=== PATIENT | male | born 1930 | race Caucasian/White ===

== ENCOUNTER 2017-09-08 09:43 | Outpatient (CLI) | payer MEDICARE ==
[2017-09-08] MEDS ORDERED: ISOVUE-370 76%-LOCM 1 ML ONE (15:00)
== END 2017-09-08 09:44 | disposition home or self-care (01) ==
LOC: BICCT 09:43
PROVIDERS: ATTEND Urology
DX: C79.82 Secondary malignant neoplasm of genital organs (principal); N30.40 Irradiation cystitis without hematuria; N50.89 Other specified disorders of the male genital organs; C79.51 Secondary malignant neoplasm of bone; C78.6 Secondary malignant neoplasm of retroperitoneum and peritoneum; N13.30 Unspecified hydronephrosis; N28.89 Other specified disorders of kidney and ureter; M43.16 Spondylolisthesis, lumbar region; N43.3 Hydrocele, unspecified; S32.10XA Unspecified fracture of sacrum, initial encounter for closed fracture; N50.3 Cyst of epididymis; R19.09 Other intra-abdominal and pelvic swelling, mass and lump
CPT/HCPCS: 74178; 76870; 82565; 93976

== ENCOUNTER 2017-12-07 09:05 | Outpatient (CLI) | payer MEDICARE ==
[2017-12-07] MEDS ORDERED: ISOVUE-370 76%-LOCM 1 ML ONE (12:56)
== END 2017-12-07 09:06 | disposition home or self-care (01) ==
LOC: BICCT 09:05
PROVIDERS: ATTEND Internal Medicine Hematology & Oncology
DX: C61 Malignant neoplasm of prostate (principal); C79.51 Secondary malignant neoplasm of bone; R19.09 Other intra-abdominal and pelvic swelling, mass and lump; N43.3 Hydrocele, unspecified; R59.9 Enlarged lymph nodes, unspecified; N13.30 Unspecified hydronephrosis; M84.454A Pathological fracture, pelvis, initial encounter for fracture; M48.061 Spinal stenosis, lumbar region without neurogenic claudication; M16.12 Unilateral primary osteoarthritis, left hip; Z96.641 Presence of right artificial hip joint; Z90.79 Acquired absence of other genital organ(s)
CPT/HCPCS: 74177; 82565

== ENCOUNTER 2018-03-01 07:45 | Outpatient (CLI) | payer MEDICARE, SELFPAY ==
--- NOTE | 2018-03-01 11:36 | CT ---
CT ABDOMEN AND PELVIS WITH ORAL AND IV CONTRAST: Date: 03/01/18 HISTORY: Malignant neoplasm of the prostate. COMPARISON: 12/07/17. FINDINGS: Mild chronic changes are again seen in the lung base. The liver, spleen, pancreas, and adrenal glands are normal. No calcified gallstones are seen. The rig ht kidney is unremarkable. Cortical cyst in the left kidney is again seen. The small bowel loops are not abnormally dilated. Left paraaortic lymphadenopathy is again seen with interval worsening. The largest lymph node measure s 2.3 x 1.9 cm. There is a new 7.0 mm lymph node in the left external iliac chain. The soft tissue solid mass in the pelvis has enlarged, measuring 9.7 cm in largest AP dimension (prev iously 8.8 cm). Changes of prostatectomy and iliac chain lymph node dissection are again seen. The probably enhancing solid mass in the right inguinal region superior to the large right hydrocele is again seen and essentially stable, measuring about 8.0 x 5.0 x 4.5 cm. There are vascular calcifications without evidence of aneurysmal dilatation of the abdominal aorta. P ostop changes of right hip arthroplasty and degenerative changes in the left hip joint are again seen . Nonunion of the right sacral ala fracture is again seen. Sclerotic changes in the pelvic osseous st ructures, including the right pelvic body, bilateral sacral ala, right greater than left, and the lef t iliac bone, probably related to nonacute fracture/radiation necrosis are stable. 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 IMPRESSION: Interval worsening since 12/07/17 with increase in size of the pelvic mass and left paraaortic lympha denopathy. POS: PAIGE
[2018-03-01] MEDS ORDERED: ISOVUE-370 76%-LOCM 1 ML ONE (11:58)
== END 2018-03-01 07:46 | disposition home or self-care (01) ==
LOC: BICCT 07:45
PROVIDERS: ATTEND Internal Medicine Hematology & Oncology
DX: C61 Malignant neoplasm of prostate (principal); R59.0 Localized enlarged lymph nodes; R19.00 Intra-abdominal and pelvic swelling, mass and lump, unspecified site
CPT/HCPCS: 74177

== ENCOUNTER 2018-06-15 10:24 | Outpatient (CLI) | payer MEDICARE ==
[~2018-06-15 10:24] MED LIST: Iopamidol 370 76% 100 ML VIAL ONE
--- NOTE | 2018-06-15 13:05 | CT ---
CT ABDOMEN AND PELVIS WITH IV CONTRAST: 06/15/2018 HISTORY: Prostate cancer. History of prostatectomy. Metastatic disease. COMPARISON: 03/01/2018 and 09/08/2017 FINDINGS: There are linear areas of scarring and atelectasis present at each lung base. No pulmonary nodule or mass is seen, and there is no pleural effusion identified. There is herniation of a small amount of fat at the posteromedial right hemidiaphragm. The liver, spleen, pancreas, bilateral adrenal glands, and right kidney demonstrate a normal CT appea farhan. A left renal cyst is again identified. Vascular calcifications are again present in the abdominal aorta and involving the iliac arteries. The prostate gland is not visualized, and there are multiple surgical clips again present within the pelvis. The urinary bladder is completely decompressed with irregularity of the mucosa. This is not able to be further evaluated on this exam. There is no evidence of hydronephrosis. The previously noted lobulated pelvic mass is again identified, with greatest axial dimension of 7.4 cm transverse x 7.3 cm AP with dimensions on prior study in 2018 of 8.2 cm transverse x 9.7 cm AP. I nflammatory stranding within the pelvis, in a presacral location, is overall similar to the prior exa m. There has been interval decrease in size of the left periaortic lymphadenopathy. The conglomeration of lymph nodes seen in a left paraaortic location, below the level of the left renal vein, previously measured 2.6 cm x 1.6 cm and now measures 1.6 cm x 1 cm. An enlarged lymph node seen just inferior to this location previously measured 2.3 cm x 1.9 cm and now measures 1.2 cm x 1.1 cm. No new areas of lymphadenopathy are present in an aortocaval location. Previously noted enlarged lymph node adjac ent to the right common iliac artery on prior exam measured 3.9 cm x 1.9 cm and now measures 3.7 cm x 1.6 cm. Previously noted enhancing and slightly heterogeneous mass in the right inguinal canal is smaller in size and axial dimensions, measuring 4.3 cm x 3.4 cm, and previously measured 4.8 cm x 4.6 cm. The m ass was noted to extend into the scrotum on the prior exam, but the most inferior extent is not image d on this exam. Duodenal diverticulum is present. Again noted are multiple sclerotic metastatic lesions involving the visualized lower thoracic vertebr al bodies, as well as the lumbar vertebral bodies, with metastatic lesions overall stable in size and number involving the vertebral bodies. The previously noted fracture of the right sacral ala, with adjacent increased density is again prese nt, probably related to a pathological fracture involving an osseous metastatic lesion. The areas of sclerosis on either side of the sacroiliac joint on the left are also again seen, stable when compar ed to the prior exam, as well as the study on 09/08/2017. There is a sclerotic lesion seen involving the posteromedial aspect of the left acetabulum, stable from prior exams as well. 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 Avascular necrosis involving the superolatera l margin of the left hip cannot be entirely excluded, although this may be attributable to prominent subchondral cystic changes. A right total hip prosthesis is again present. There has been interval development of vertical height loss of the L2 vertebral body, when compared t o a recent study on 03/01/2018, consistent with a compression fracture of the L2 vertebral body, with at least 30% loss of height, anteriorly. The remainder of the vertebral body heights of the lumbar spine appear to be within normal limits. Again noted is anterolisthesis of L4 on L5. IMPRESSION: 1. Interval development of a compression fracture involving the L2 vertebral bodywith at least 30% h eight loss anteriorly. 2. 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 3. Stable pathological fracture, right sacrum. 4. Improvement in left paraaortic lymphadenopathy, as well as improvement in the enlarged lymph node adjacent to the right common iliac artery. 5. Mild improvement in the size of the lobulated pelvic mass. 6. The urinary bladder is completely decompressed and not well evaluated, although there is irregula rity of the mucosa. 7. Interval improvement in the size of the right inguinal canal mass, incompletely imaged in the mos t inferior extent. 8. Stable inflammatory stranding within the posterior and lower pelvis. 9. Findings likely attributable to severe left hip osteoarthritis, although avascular necrosis invol ving the superolateral aspect of the femoral head cannot be entirely excluded. 10. Grade 1 anterolisthesis of L4 on L5 with prominent degenerative changes at this level with what a ppears to be severe narrowing of the central spinal canal. POS: PAIGE
== END 2018-06-15 10:25 | disposition home or self-care (01) ==
LOC: BICCT 10:24
PROVIDERS: ATTEND Internal Medicine Hematology & Oncology
DX: C61 Malignant neoplasm of prostate (principal); C79.51 Secondary malignant neoplasm of bone; R59.0 Localized enlarged lymph nodes; R19.09 Other intra-abdominal and pelvic swelling, mass and lump; M43.16 Spondylolisthesis, lumbar region; M47.816 Spondylosis without myelopathy or radiculopathy, lumbar region; M48.061 Spinal stenosis, lumbar region without neurogenic claudication; M48.58XA Collapsed vertebra, not elsewhere classified, sacral and sacrococcygeal region, initial encounter for fracture
CPT/HCPCS: 74177; Q9967

== ENCOUNTER 2018-09-15 10:24 | Outpatient (CLI) | payer MEDICARE ==
--- NOTE | 2018-09-15 11:10 | CT ---
CT Abdomen Pelvis WO Con: 09/15/2018 12:00 AM History: COMPARISON: None. Procedure: Multiple contiguous axial images were obtained and a CT of the abdomen and pelvis without IV contrast . Oral contrast was administered. Coronal reformats were performed. FINDINGS: This examination is limited for the evaluation of solid organs and vascular structures due to the lac k of intravenous contrast. Lower Chest: within normal limits. Abdomen: Liver: within normal limits. Bile Ducts: Normal caliber. Gallbladder: No calcified gallstones. Normal caliber wall. Pancreas: within normal limits. Spleen: within normal limits. Adrenals: within normal limits. Kidneys: Moderate to severe bilateral hydronephrosis. 2.9 cm hypodensity in the left kidney likely re presenting a cyst. Pelvis: Reproductive Organs: There is a large mass in the pelvis measuring 12.4 x 12.2 x 10.6 cm in size. Thi s extends down to the region of the prostate. Ureters: Moderate to severe bilateral hydronephrosis and hydroureter. Bladder: Not visualized secondary to the pelvic mass. Bowel: Normal caliber. Mesenteric Lymph Nodes: No enlarged mesenteric lymph nodes. Peritoneum: No ascites or free air, no fluid collection. Vessels: Atherosclerotic changes . Retroperitoneum: Enlarged retroperitoneal lymph nodes measuring up to 2.5 cm in size. Abdominal Wall: There is a high density round mass in the right inguinal canal measuring 5.6 cm in si ze. Bones: Diffuse sclerotic lesions in the bones consistent with osseous metastatic disease. There appea r to be remote sacral fractures. The patient has a right hip prosthesis. Degenerative changes are seen in the left hip. IMPRESSION: 1. Enlarging pelvic mass causes compression on the distal ureters with moderate to severe bilateral h ydronephrosis 2. Worsening retroperitoneal adenopathy 3. Left renal cyst 4. Stable osseous metastatic disease.
== END 2018-09-15 10:25 | disposition home or self-care (01) ==
LOC: BICCT 10:24
PROVIDERS: ATTEND Internal Medicine Hematology & Oncology
DX: C61 Malignant neoplasm of prostate (principal); N13.30 Unspecified hydronephrosis; N28.1 Cyst of kidney, acquired; R19.00 Intra-abdominal and pelvic swelling, mass and lump, unspecified site; R59.0 Localized enlarged lymph nodes
CPT/HCPCS: 74176

== ENCOUNTER 2018-10-23 00:49 | Inpatient (IN) | payer MEDICARE ==
[2018-10-23 01:29] LABS: #Eosinphils 0.1 thou/uL (0.0-0.7); #Lymphocytes 1.5 thou/uL (1.20-3.40); #Monocytes 0.7 thou/uL (0.11-0.59); #Neutrophils 7.3 thou/uL (1.40-6.50); %Basophils 0.1 % (0.0-1.0); %Eosinophils 1.2 % (0.0-10.0); %Lymphocytes 15.6 % (21.0-51.0); %Monocytes 6.9 % (0.0-10.0); %Neutrophils 76.3 % (42.0-75.0); Hemoglobin 8.3 g/dL (14.0-18.0); Mean Corpuscular HGB CONC 33.6 g/dL (32.0-36.0); Mean Corpuscular Hemoglobin 30.5 pg (27.0-31.0); Mean Corpuscular Volume 90.5 fL (78.0-98.0); Mean Platelet Volume 8.3 fL (7.4-10.4); Platelet Count 263 thou/uL (130-400); RBC Distribution Width 13.4 % (11.5-14.5); Red Blood Cell (RBC) Count 2.72 mill/uL (4.70-6.10); White Blood Cell (WBC) Count 9.5 thou/uL (4.8-10.8)
[2018-10-23] MEDS ORDERED: Morphine 4 MG/ML VIAL ONE (01:29)
[2018-10-23] MEDS ORDERED: Ondansetron PF 4 MG/2 ML Vial ONE (01:29)
[2018-10-23 01:52] LABS: ALT (SGPT) 12 U/L (8-55); AST (SGOT) 17 U/L (5-34); Albumin 4.1 g/dL (3.4-4.8); Alkaline Phosphatase 95 U/L (40-150); Anion Gap 18 mmol/L (10-20); BUN (Urea Nitrogen) 80 mg/dL (8.4-25.7); Bilirubin, Total 0.5 mg/dL (0.2-1.2); Calc. Creatinine Clearance 0 mL/min (70-130); Calcium 9.6 mg/dL (7.8-10.44); Carbon Dioxide 23 mmol/L (23-31); Chloride 102 mmol/L (98-107); Estimated GFR-MDRD 14; Globulin 3.7 g/dL (2.4-3.5); Glucose 112 mg/dL (83-110); Lipase 107 U/L (8-78); Potassium 3.9 mmol/L (3.5-5.1); Protein, Total 7.8 g/dL (5.8-8.1); Sodium 139 mmol/L (136-145)
[2018-10-23] MEDS ORDERED: Ondansetron ODT 4 MG TAB SL PRN (05:02)
[2018-10-23] MEDS ORDERED: Ondansetron PF 4 MG/2 ML Vial IVP PRN (05:02)
[2018-10-23] MEDS ORDERED: Morphine 4 MG/ML VIAL SLOW IVP PRN (05:03)
[2018-10-23] MEDS: Sodium Chloride 0.9% 1,000 ML IV SCH ×2 (06:07→15:48)
[2018-10-23 06:12] VITALS: BMI 19.8
--- NOTE | 2018-10-23 08:28 | CT ---
PRELIMINARY REPORT/[facility]/AFTER HOURS PROCEDURE EXAM: CT Abdomen and Pelvis Without Contrast EXAM DATE/TIME: 10/23/2018 1:58 AM CLINICAL HISTORY: 88 years old, male; Abdominal pain; Acute; Patient HX: Has prostate CA with mets. C/O pelvic pain started 8pm and pain has increased. Also states when has bm states blood coming out of penis. Also having intermittent rectal pain. TECHNIQUE: Imaging protocol: Axial computed tomography images of the abdomen and pelvis without contrast. COMPARISON: No relevant prior studies available. FINDINGS: Lungs: Mild bilateral lower lobe dependent air space opacity-atelectasis. Mediastinum: Rounded 3 cm hiatal hernia. Liver: Normal. No mass. Gallbladder and bile ducts: Normal. No calcified stones. No ductal dilation. Pancreas: Normal. No ductal dilation. Spleen: Normal. No splenomegaly. Adrenals: Normal. No mass. Kidneys and ureters: Moderate bilateral hydronephrosis - hydroureter up to pelvis. Ovoid 3 cm simple appearing left renal cyst. Stomach and bowel: Normal. No obstruction. No mucosal thickening. Mild - moderate amount retained stool material throughout nondilated colon. Appendix: Not seen. Intraperitoneal space: Large 13 x 13.5 x 8 cm area hyperdense soft tissue in pelvis. No free air. Vasculature: Chronic atherosclerotic calcification of the vasculature. Lymph nodes: Normal. No enlarged lymph nodes. Bladder: Unremarkable as visualized. Reproductive: Numerous surgical clips in rectovesical space, absent prostate. Large right hydrocele and fluid in right inguinal canal. Bones/joints: Right total hip arthroplasty creates artifact limiting images of the pelvis. Multifocal areas hyperdensity/sclerosis throughout pelvis and spine. Chronic degenerative changes of the lumbar spine and left hip. Soft tissues: Unremarkable. IMPRESSION: 1. Right total hip arthroplasty creates artifact limiting images of the pelvis. 2. Large pelvic area hyperdensity most suspicious for mass, likely related to patient history of pros farah cancer; less likely consideration is hematoma. Please correlate with patients clinical exam. 3. Moderate bilateral hydronephrosis - hydroureter up to pelvis-likely related to obstruction by pelv ic mass. 4. Evidence multifocal osseous metastatic disease. 5. Large right hydrocele and fluid in right inguinal canal. 6. Mild - moderate amount retained stool material throughout nondilated colon. 7. Rounded 3 cm hiatal hernia. Thank you for allowing us to participate in the care of your patient. Dictated and Authenticated by: Po Alas MD 10/23/2018 5:28 AM Central Time ([place] & True) FINAL REPORT CT ABDOMEN AND PELVIS WITHOUT CONTRAST: PROVIDED CLINICAL HISTORY: Abdominal pain. COMPARISON: 09/15/2018 FINDINGS/IMPRESSION: Agree with the preliminary interpretation given by VRDAVID. Significant interval change with respect to the prior examination is not apparent. Transcribed Date/Time: 10/23/2018 8:32 AM
--- NOTE | 2018-10-23 14:23 | PRG ---
DATE OF SERVICE: 10/23/2018 This is an update to the H and P. After speaking with Dr. Quintanilla who also primarily manages this patient along with Dr. Aparicio, I became aware that his current facility [facility] where he resides as an assisted living center will not accept him back with nephrostomy tubes. I was not completely aware of this. As such, I have canceled the patient's nephrostomy tube, and I have spoken with the patient about this. He is fine leaving the nephrostomy tubes out as he does not want to go to a retirement at this time and would rather stay in his current assisted living situation. Dr. Quintanilla states that he has exhausted most of his treatment options, but she will come by and speak with the patient while he is here. I will put the consult in so that she may be notified. Ultimately, I will defer final treatment plans to Dr. Aparicio and Dr. Quintanilla and will be available this weekend for any further issues. Job ID: [id number]
--- NOTE | 2018-10-23 17:07 | HP ---
CHIEF COMPLAINT: Nausea and vomiting. HISTORY OF PRESENT ILLNESS: This is an 88-year-old male, patient of Dr. Ace Watt, who came to the emergency room due to worsening nausea and vomiting and overall feeling bad. The patient in the emergency room was found to have an expanding pelvic mass, which is causing compression of bilateral ureters and having result of bilateral hydronephrosis. Also experiencing acute renal failure with a creatinine of up to 3.99. The patient states he had a prostatectomy for prostate cancer 20 some years ago and has known about this pelvic mass. He has been seeing Dr. Aparicio and Dr. Quintanilla, but has not had this problem happened. His most common complaint that he states is that for several months he has known that when he has a bowel movement he will have some blood coming through the penis as a result of the motion of the bowels. He does not typically see hematuria with the void. He has not had any fevers. He has not had any changes in mentation. PAST MEDICAL HISTORY: Positive for; 1. Hypertension. 2. History of prostate cancer. PAST SURGICAL HISTORY: 1. Modified radical prostatectomy some 20 years ago. 2. He had an appendectomy. 3. Tonsillectomy. 4. He had a nasal surgery of some kind, said he had some sort of obstruction, he is not sure, but he said it was not a major or big surgery. 5. Right hip replacement. ALLERGIES: TO ERYTHROMYCIN AND SULFA. CURRENT MEDICATIONS: 1. Losartan 100 mg daily. 2. Hydrochlorothiazide 25 mg daily. 3. He has many p.r.n. medicines including Imodium and vitamins. FAMILY HISTORY: Father from a stroke. Mother at an old age, he was not sure of any chronic disease with her. 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 No smoking or drinking. REVIEW OF SYSTEMS: He denies any headache or visual changes. No trouble chewing or swallowing. No fevers or chills. Denies any cough or shortness of breath or hemoptysis or hematemesis. Denies any abdominal pain. Does have nausea with some vomiting. Has not seen a change in his bowel habits. Has not had any hematochezia or melena. He denies any paresis or paresthesias. No troubles with memory. No depression or anxiety. No auditory or visual hallucinations. PHYSICAL EXAMINATION: VITAL SIGNS: Temperature 97.5, pulse 63, saturating 98% to 100% on room air, BP is 180s/70s. GENERAL: He appears an elderly, stated age, but relatively fit. HEENT: Normocephalic and atraumatic cranium. Pupils are equal, round, and reactive to light and accommodation. Extraocular movements are intact. Mucous membranes are moist. NECK: Supple. No JVD. No bruits. No thyromegaly. No lymphadenopathy. LUNGS: Clear to auscultation bilaterally. No rales, rhonchi, or wheezes. HEART: S1 and S2 with no rubs, murmurs, or gallops. ABDOMEN: Soft. Minimal tenderness in the lower half of the abdomen. No rebound. No guarding. Bowel sounds are hypoactive. EXTREMITIES: Good palpable pulses in all 4 extremities. NEUROLOGIC: He is alert and oriented x4. Cranial nerves 2 through 12 are equal and symmetrical. No deficits in any of the sensory nerves grossly. Able to move all extremities and no motor deficits noted. No dysarthria. LABORATORY DATA: His white count is 9.5, hemoglobin 8.3, hematocrit 24.6, and his platelets are 263. Chemistry shows sodium 139, potassium 3.9, chloride 102, bicarb 23, BUN is 80, creatinine is 3.9, GFR is 14, and glucose 112. AST 17, ALT is 12, and lipase mildly elevated at 107. IMAGING STUDIES: CT scan of the abdomen showed no abnormalities of the pancreas and no ductal dilatation, showed a right hip arthroplasty. CT also showed that he has a large pelvic hyperdensity mass, also possible consideration is a hematoma, but moderate bilateral hydronephrosis and hydroureters up to the renal pelvis. There is evidence of multifocal osseous metastatic disease. [id number] retained stool material throughout a nondilated colon. ASSESSMENT: 1. Acute renal failure with bilateral hydronephrosis and pelvic mass. 2. The patient also has acute anemia. PLAN: Consulting his urologist, Dr. Aparicio, her partner Dr. Beasley is on this weekend. He has already been made aware of the situation. Also consulting Nephrology. Job ID: [id number]
--- NOTE | 2018-10-23 18:19 | CON ---
DATE OF CONSULTATION: 10/23/2018 CONSULTING: Jamel Sigala MD REASON FOR CONSULTATION: Bilateral hydronephrosis with metastatic prostate cancer. HISTORY OF PRESENT ILLNESS: Mr. Fowler is an 88-year-old white male, who is currently a patient of Dr. Aparicio and Dr. Quintanilla, regarding advanced metastatic prostate cancer. He has a history of a radical prostatectomy done by Dr. Radford in the past. He subsequently had recurrence and underwent radiation treatments. Unfortunately, he ended up progressing with a large mass developing within the pelvis with bilateral hydronephrosis and pelvic discomfort. He also developed some radiation cystitis. He has undergone multiple rounds of hyperbaric oxygen in the past and his bleeding has now resolved. The patient presented to the emergency room with significant and severe suprapubic and right inguinal pain. This was 10/10 at the initial presentation with sharp in nature radiating directly towards his back. Upon arrival to the ER, he underwent a CT scan, which demonstrated a large pelvic hyperdensity suspicious for mass and most likely related to the patient's prostate cancer with moderate bilateral hydronephrosis up to the level of the pelvis, where the mass was. There was evidence for osseous metastatic disease and a large right hydrocele with fluid in the right inguinal canal, which apparently is newer. Since being admitted to the hospital, the patient states his pain has significantly declined and he is feeling much better. His creatinine is significantly more elevated than it was previously, it is currently 3.99, and it was 2.2 back on September 02. The patient does report that he does not void, but just chronically dribbles and is constantly incontinent. He does have some nuisance from his dribbling and it is bothersome to him, but he has learned to live with it. Dr. Aparicio had previously recommended nephrostomy tubes at the original discovery of the hydronephrosis with renal insufficiency. However, the patient declined stating he did not want nephrostomy tubes. He also refused a Bear catheter or cystoscopy. He has already undergone chemotherapy, which apparently has been stopped due to significant side effects. The patient had been on Xtandi and Lupron provided by Dr. Quintanilla, but apparently the patient reports that he is no longer taking either of these medications. He is currently not taking any treatments at all. He denies any significant hematuria, although he does have some bloody urine whenever he strains to have a bowel movement, which does happen frequently as the patient reports chronic constipation. He denies any difficulty breathing or chest pain, but does feel somewhat fatigued and has chronic pain. He is currently living independently and does not want to be in a facility or live in a care home. ALLERGIES: 1. DUST MITES. 2. ZITHROMAX. 3. KEFLEX. 4. CLINDAMYCIN. 5. BACTRIM. 6. ERYTHROMYCIN. CURRENT MEDICATIONS: 1. Vitamin C. 2. Hydrochlorothiazide. 3. Losartan. 4. Tylenol. 5. Docusate. 6. Loperamide. 7. Milk of magnesia. 8. Diphenhydramine. 9. Guaifenesin. 10. Zofran. 11. Albuterol. 12. Ibuprofen. PAST MEDICAL HISTORY: 1. Prostate cancer, advanced to metastatic disease. 2. Hypercholesterolemia. 3. Hypertension. 4. COPD. 5. Sleep apnea. 6. Colonic polyps. 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 9. Incontinence. PAST SURGICAL HISTORY: 1. Robotic prostatectomy in 2000. 2. Cataract removal. 3. Right arm fracture repair. 4. Surgery for squamous cell carcinoma of the hand. 5. External beam radiation therapy in [place]. FAMILY HISTORY: Noncontributory. Both parents are . SOCIAL HISTORY: The patient is a nonsmoker. He currently lives at [facility] in assisted living, but not a care home. 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 He denies alcohol abuse or illicit drug use as well. REVIEW OF SYSTEMS: A 12-point review of systems was unremarkable other than what was commented on the HPI. The remainder of the review of systems was reviewed and otherwise negative. PHYSICAL EXAMINATION: VITAL SIGNS: Temperature 97.5, pulse 63, respirations 18, blood pressure 188/76, saturation 98% on room air. GENERAL: No apparent distress, communicating, and alert, appears stated age, well nourished, well developed. HEENT: Normocephalic and atraumatic. Pupils are symmetric and round. Sclerae nonicteric. Trachea midline. Moist mucous membranes. CARDIOVASCULAR: Regular rate and rhythm. Normal S1 and S2. Symmetric pulses. CHEST: No increased work of breathing. Symmetric expansion. LUNGS: Clear anteriorly. ABDOMEN: Soft, nontender, and nondistended. Positive bowel sounds. No organomegaly. No hernias. Well-healed prior incisions without hernia. GENITOURINARY: Penis is extremely retracted secondary to a large tense right hydrocele, which is mildly tender to palpation. The hydrocele does extend up into the right inguinal region. There does not appear to be any type of hydrocele on the left. The pelvic mass is not entirely palpable, but there is a pressure some pain on deep palpation in the suprapubic area. RECTAL: Deferred at this time. EXTREMITIES: No clubbing, cyanosis, or edema. MUSCULOSKELETAL: No joint deformities or joint erythema noted. Full range of motion, although the patient does exhibit some weakness in his lower extremities, which is relatively mild, although he cannot stand. There is [id number]-[id number] tenderness to palpation on the back. NEUROLOGIC: Cranial nerves 2 through 12 appear grossly intact. No focal motor deficits identified other than the aforementioned mild lower extremity weakness. SKIN: Warm and dry. No rashes or lesions. Poor turgor. LYMPH: There are no obvious inguinal, axillary, cervical lymph nodes palpable. PSYCHIATRIC: Alert and oriented x3. Appropriate mood and affect. LABORATORY EVALUATION: The full set of labs are in the [facility] system, which I have reviewed. Of note, the patient's white count is 9.5 with a hemoglobin of 8.3, and platelet count of 263. Creatinine is currently 3.99, which is significantly elevated from prior. Alkaline phosphatase is 95. CT from October 23 demonstrates right total hip arthroplasty. Large pelvic area hypodensity most suspicious for a mass measuring 13 x 13.5 x 8 cm. Moderate bilateral hydronephrosis down to the level of the pelvis likely related to the obstruction by the pelvic mass, multifocal osseous metastatic disease. A large right hydrocele with fluid up into the right inguinal canal, [id number] retained stool and around a 3 cm hiatal hernia. ASSESSMENT AND PLAN: An 88-year-old white male with progressive renal insufficiency secondary to bilateral hydronephrosis from a large pelvic mass, which likely represents recurrent prostate cancer. I had a long discussion with the patient regarding his disease prognosis, his current treatment options, and his renal insufficiency. With regard to his prostate cancer, the patient has stopped all treatment. It is likely the cancer will continue to progress until it is fatal. He is not yet ready for hospice and states that he would still like to go longer. I would recommend he re-initiated androgen deprivation, although he has likely castrate resistant, cessation of castration does usually result in faster progression of disease. I would recommend that we can restart bicalutamide at the current time, but Lupron is not available in the hospital. He may discuss going back on Lupron therapy with Dr. Quintanilla, although the long-term prognosis remains poor. Regarding his hydronephrosis, the patient is exhibiting continues renal decline. I talked to him about maintaining his independence and freedom without tubes, although this would likely result in complete renal failure in the near future, which would necessitate dialysis. The patient states he absolutely does not want to be on dialysis. If he does not want this and is not ready for hospice care at this time, I told him the nephrostomy tubes were the best option. After a long discussion regarding this, he understands that he would not lose his independence, but have some decreased in freedom with the tubes coming out of his back. Ureteral stents would not be recommended given the patient's history of radiation cystitis and difficulty in passing urethral instrumentation given that the Bear catheter was not able to be passed previously, as such nephrostomy tubes were the best recommended option and after discussion, the patient has agreed to go forward with nephrostomy tube placement. I will go ahead and order this for the patient were on this admission and we will go ahead and start his bicalutamide now. I will get a PSA to monitor his disease progression at this state. His right inguinal plane seems to be improved. If the patient wanted a palliative hydrocelectomy or decompression with drain placement of his hydrocele that could be discussed in the future, although I will leave this to his primary urologist, Dr. Aparicio. For now, summary of recommendation; 1. Bilateral nephrostomy tube placements nonurgent. 2. Reinitiate bicalutamide with recommendations to restart Lupron as an outpatient. 3. Long-term cancer management options remain limited. Discussion of whether or not chemotherapy would be reasonable to re-initiate, I will leave to Dr. Quintanilla, which the patient can discuss on an outpatient basis. 4. PSA checked today. 5. Continue pain control and we will monitor for pain progression. Job ID: [id number]
--- NOTE | 2018-10-24 00:24 | CON ---
DATE OF CONSULTATION: 10/23/2018 HISTORY OF PRESENT ILLNESS: Mr. Fowler is an 88-year-old male with relapsed locally advanced castrate-resistant prostate cancer who has had a known pelvic mass over the course of the last year and a half, which has gotten progressively worse, off treatment in the last several months. Notably, he responded to chemotherapy over the winter with Taxotere, but this did make him quite ill with diarrhea and he opted to stop this. He has remained on Lupron, but has had progression in the pelvic mass. This has been discussed with him as an outpatient by myself as well as the urologist and the only option at one point months ago was percutaneous nephrostomy. The patient opted to not move forward with percutaneous nephrostomy because of the fact that this would cause him to move out of the [facility] which is his current home. On the day prior to admission, he had increasing pain in the suprapubic area. He had some nausea as well. He denies fevers, chills, or night sweats. His appetite has been slightly decreased in the last few days. His pain is now well controlled on the regimen that he has been hospitalized on, and he is feeling better. PAST MEDICAL HISTORY: 1. Relapsed locally advanced prostate cancer. 2. Hypertension. CURRENT MEDICATIONS: 1. Casodex 50 mg p.o. daily. 2. Morphine 4 mg IV x1, it appears this may have been discontinued. ALLERGIES: AZITHROMYCIN, KEFLEX, CLINDAMYCIN, SULFAMETHOXAZOLE, TRIMETHOPRIM. SOCIAL HISTORY: He lives in the [facility] with his sister and brother-in- law who are quite supportive, this is his main family and source of support. He denies tobacco or alcohol use. FAMILY HISTORY: Negative for malignancies. REVIEW OF SYSTEMS: He does complain of some intermittent constipation. Otherwise, a 10-point review of systems is negative. PHYSICAL EXAMINATION: VITAL SIGNS: Temp 97.5, pulse 63, O2 saturation 98% on room air, blood pressure 188/76. GENERAL: He is quite pleasant, sitting up in a chair, and denies pain. HEENT: Extraocular muscles are intact. Sclerae are anicteric. NECK: Supple without lymphadenopathy. CARDIOVASCULAR: Regular rhythm. LUNGS: Clear to auscultation bilaterally. ABDOMEN: Hypoactive bowel sounds. Slight distention, but no current pain. EXTREMITIES: No edema. No clubbing, and no bruising. LABORATORY DATA: White blood cell count 9.5, hemoglobin 8.3, platelets 263. Sodium 139, potassium 3.9, chloride 102, CO2 of 23, BUN 80, creatinine 3.9, which is up from his baseline which is just below 2. Albumin 4.1. Liver function tests are normal. PSA 156. Abdominal and pelvic CT done in the emergency room shows a large pelvic mass, which seems to be progressive and now measures 13 cm with moderate bilateral hydronephrosis. He does have multifocal osseous metastatic disease as well as a moderate amount of retained stool throughout the colon. ASSESSMENT: Mr. Fowler is an 88-year-old male with, 1. 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 2. 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 3. Bilateral hydronephrosis secondary to pelvic mass. 4. Suprapubic pain secondary to the pelvic mass. PLAN: 1. I again discussed the diagnosis and prognosis with Mr. Fowler. He does want to stay in the [facility] and does not want percutaneous nephrostomy tubes unless this can be managed. 2. I would recommend a palliative care consult. I have discussed hospice with Mr. Fowler in the past and he has not been ready to accept this. He also did not do well with chemotherapy and does not have other good options for treatment for his prostate cancer. We will follow with you and I would recommend no further treatment until his urologist is back after the weekend. 3. I would recommend continue narcotics for pain control. 4. I would recommend further control of the blood pressure with antihypertensive medications. Job ID: [id number] [facility]
--- NOTE | 2018-10-24 01:54 | CON ---
DATE OF CONSULTATION: 10/23/2018 REASON FOR CONSULTATION: Acute on chronic kidney disease. IMPRESSION: Acute on chronic kidney disease. This is likely hemodynamically mediated in the context of nausea and vomiting compounded by obstructive uropathy in the context of bilateral hydronephrosis likely from the prostatic carcinoma and multiple anemia likely anemia of chronic kidney disease. PLAN: 1. The patient does need relieve of the obstruction. Unfortunately, this patient is getting bilateral nephrostomy . The patient not been able to return to [facility]. The patient does not want to lose his ability to return to [facility]. We will defer to Urology and Interventional Radiology as to the alternative plan obstruction in this patient. 2. Gentle rehydration. 3. Renally dose all medications and avoid potentially nephrotoxic agents. 4. Hold losartan and hydrochlorothiazide for now. HISTORY OF PRESENT ILLNESS: History is that of 88-year-old gentleman with metastatic prostatic carcinoma, who presented here with worsening nausea, vomiting, generally feeling terrible, and was noted to have expanding pelvic mass which has caused compression of bilateral ureters resulting in bilateral hydronephrosis. The patient noted with elevated creatinine above his baseline creatinine, thus the need for renal consultation. PAST MEDICAL HISTORY: Significant for prostatic carcinoma, hypertension, status post modified radical prostatectomy, right hip replacement. ALLERGIES: ERYTHROMYCIN AND SULFA. FAMILY HISTORY: Not significantly related to reason for consultation. 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 Rare alcohol with tobacco. REVIEW OF SYSTEMS: As documented in the body of history. All the other systems were reviewed and found not to be significantly related to presenting illness. PHYSICAL EXAMINATION: GENERAL: The patient was found not to be in any obvious distress, noted with the following vital signs. VITAL SIGNS: Afebrile, temperature 98, pulse 66, respiratory rate of 18, O2 saturation 97%, blood pressure of 160/71. HEENT: Unremarkable. Moist oral mucosa. NECK: Supple. No conjunctival injection or icterus. CARDIOVASCULAR SYSTEM: First and second heart sounds were heard. RESPIRATORY SYSTEM: Clear to auscultation. DIGESTIVE SYSTEM: Revealed a benign abdomen. Positive bowel sounds. EXTREMITIES: No peripheral edema. SKIN: No new gross rash. LYMPHATICS: No peripheral lymphadenopathy. SUMMARY: An 88-year-old gentleman with advanced metastatic prostatic carcinoma, who presented here with acute on chronic kidney disease in the context of worsening obstructive uropathy. Thank you for this consultation. We will follow with you. Job ID: [id number]
[2018-10-24 05:26] LABS: #Eosinphils 0.2 thou/uL (0.0-0.7); #Lymphocytes 1.5 thou/uL (1.20-3.40); #Monocytes 0.4 thou/uL (0.11-0.59); #Neutrophils 2.8 thou/uL (1.40-6.50); %Basophils 0.4 % (0.0-1.0); %Eosinophils 3.2 % (0.0-10.0); %Lymphocytes 29.8 % (21.0-51.0); %Neutrophils 57.7 % (42.0-75.0); Hemoglobin 7.1 g/dL (14.0-18.0); Mean Corpuscular HGB CONC 33.5 g/dL (32.0-36.0); Mean Corpuscular Hemoglobin 30.6 pg (27.0-31.0); Mean Corpuscular Volume 91.2 fL (78.0-98.0); Mean Platelet Volume 8.1 fL (7.4-10.4); Platelet Count 198 thou/uL (130-400); RBC Distribution Width 13.2 % (11.5-14.5); Red Blood Cell (RBC) Count 2.31 mill/uL (4.70-6.10); White Blood Cell (WBC) Count 4.9 thou/uL (4.8-10.8)
[2018-10-24 05:43] LABS: Anion Gap 15 mmol/L (10-20); BUN (Urea Nitrogen) 83 mg/dL (8.4-25.7); Calc. Creatinine Clearance 11 mL/min (70-130); Calcium 9.1 mg/dL (7.8-10.44); Carbon Dioxide 22 mmol/L (23-31); Chloride 107 mmol/L (98-107); Estimated GFR-MDRD 12; Glucose 83 mg/dL (83-110); Potassium 4.1 mmol/L (3.5-5.1); Sodium 140 mmol/L (136-145)
[2018-10-24 06:35] LABS: Bilirubin Negative (Negative); Blood, Urine Moderate (Negative); Clarity CLOUDY (Clear); Glucose, Urine (Dipstick) Negative (Negative); Leukocyte Negative (Negative); Nitrite Negative (Negative); Protein, Urine (Dipstick) 30 mg/dL (Neg-Trace); Specific Gravity, Urine 1.008 (1.002-1.036); Urobilinogen 0.2 mg/dL (0.2-1.0)
[2018-10-24 06:38] LABS: Bacteria/HPF None Seen HPF (None Seen); Hyaline Casts/LPF 0-3 HYALINE CAST LPF (0-3 Hyaline); Pathc Cast-AUWi Flag 0.54 (0-2.49); Squamous Epithelial 0-3 HPF (0-3); WBC/HPF 0-3 HPF (0-3)
[2018-10-24] MEDS: Bicalutamide 50 MG TAB PO SCH (08:18)
[2018-10-24] MEDS ORDERED: Prevnar 13-Val Conj/PF 0.5 ML SYRINGE IM ONE (09:00)
[2018-10-24] MEDS ORDERED: Acetaminophen 500 MG TAB PO PRN ×2 (12:30→14:42)
--- NOTE | 2018-10-24 13:59 | PRG ---
DATE OF SERVICE: 10/24/2018 PRIMARY CARE PHYSICIAN: Dr. Ace Ruiz. SUBJECTIVE: The patient today has no new complaints. Consultants came by yesterday. His Nephrology came by and said he might benefit from dialysis, but at this point, not sure what the right thing to do. Dr. Quintanilla from Oncology also came by and stated that there is nothing else to do from a chemotherapy standpoint for him and that the only thing that would give him any prolongation of life would be nephrostomy tubes and Dr. Beasley was in the process of taking him down to the operating room to do nephrostomy tubes and the patient stated that he did not want to leave his current residence, which is [facility] and they told him very explicitly that they could not handle him, he could not reside there if he had urostomy tubes. So, the patient is still trying to decide which way he wants to go. He understands that if he does not have urostomy tubes, that his renal function will continue to deteriorate rapidly and he will have a renal failure and in very short order. If he does need nephrostomy tubes, he will not have to be able to stay at [facility] and he will have to find other residence, that has the ability to handle and take care of nephrostomy tubes and the complication rates of those, and then the knowledge that the prostate cancer will continue to spread and that will be his cause of associated with that. OBJECTIVE: VITAL SIGNS: Today, the patient's vital signs are stable. He is afebrile. He is going to get 1 unit of blood. His hemoglobin today came back at 7.1 with a hematocrit of 21.1. His BUN is up to 83 and his creatinine is up to 4.5. GENERAL: He is alert and oriented, sitting up, conversive, and cooperative. HEENT: Essentially unremarkable. Nonicteric sclerae. No jaundice. NECK: Supple. No JVD. HEART: S1-S2 with no rubs, murmurs, or gallops. LUNGS: Clear bilaterally. ABDOMEN: Soft. EXTREMITIES: Good palpable pulses in all 4 extremities. No cyanosis, clubbing, or edema is noted. ASSESSMENT: Pelvic mass from prostate cancer. The mass is compressing both ureters causing bilateral hydronephrosis and hydroureter. Also has resultant acute renal failure. Also having acute anemia secondary to renal failure. The patient is receiving 1 unit of blood today. The patient will be making a choice on whether he wants to go back to [facility] on hospice type care or whether he wants to have nephrostomy tubes placed and to have a [facility] [employer] help him find a new residence. Dr. Ruiz will be back tomorrow and Dr. Julien Beasley will be back tomorrow and they will help him hopefully to find these decisions. Job ID: [id number]
[2018-10-24] MEDS ORDERED: Ondansetron ODT 4 MG TAB SL PRN (14:43)
[2018-10-24] MEDS ORDERED: Ondansetron PF 4 MG/2 ML Vial SLOW IVP PRN (14:43)
[2018-10-24] MEDS ORDERED: Ondansetron ORAL SOLN. 4 MG/5 ML UDCUP PO PRN (14:44)
[2018-10-24] MEDS ORDERED: Sodium Chloride 0.9% 1,000 ML IV SCH (14:45)
[2018-10-24] MEDS ORDERED: Losartan 25 MG TAB PO SCH (15:45)
[2018-10-24] MEDS ORDERED: Hydrochlorothiazide 25 MG TAB PO SCH (15:45)
--- NOTE | 2018-10-24 23:06 | PRG ---
DATE OF SERVICE: 10/24/2018 SUBJECTIVE: The patient is seen and examined. No new complaints except for appetite. OBJECTIVE: VITAL SIGNS: Noted with the following vital signs. Afebrile, temperature 98, pulse 59, respiratory rate of 18, O2 saturations are 99%, blood pressure 151/65 to 180/65. HEENT: Unremarkable. Moist oral mucosa. No conjunctival injection or icterus. NECK: Supple. CARDIOVASCULAR: First and second heart sounds were heard. RESPIRATORY: Clear to auscultation. DIGESTIVE: Revealed a benign abdomen. Positive bowel sounds. EXTREMITIES: No peripheral edema. SKIN: No new gross rash. LYMPHATICS: No peripheral lymphadenopathy. LABORATORY INVESTIGATION: Showed BUN of 83 with a creatinine of 4.53. CBC showed a hemoglobin of 7.1. IMPRESSION: 1. Worsening acute on chronic kidney disease in the context of obstructive uropathy. 2. Incipient uremic symptomatology. 3. Anemia, likely anemia of chronic kidney disease. PLAN: 1. Without the relief of this patient's obstruction, renal function likely to deteriorate further. 2. I am afraid patient already is picking some possible component of uremic symptoms, however, we will await the family discussion tomorrow to decide how much aggressive management the patient is willing to undergo. 3. Further management to be dependent on the clinical course. Job ID: [id number]
[2018-10-25 06:37] LABS: Bilirubin Negative (Negative); Blood, Urine Moderate (Negative); Clarity CLOUDY (Clear); Glucose, Urine (Dipstick) Negative (Negative); Leukocyte Negative (Negative); Nitrite Negative (Negative); Protein, Urine (Dipstick) 30 mg/dL (Neg-Trace); Specific Gravity, Urine 1.008 (1.002-1.036); Urobilinogen 0.2 mg/dL (0.2-1.0)
[2018-10-25 06:40] LABS: Bacteria/HPF None Seen HPF (None Seen); Hyaline Casts/LPF 0-3 HYALINE CAST LPF (0-3 Hyaline); Pathc Cast-AUWi Flag 0.68 (0-2.49); RBC/HPF 0-3 HPF (0-3); Squamous Epithelial 0-3 HPF (0-3); WBC/HPF 0-3 HPF (0-3)
[2018-10-25 06:42] LABS: #Eosinphils 0.1 thou/uL (0.0-0.7); #Lymphocytes 1.5 thou/uL (1.20-3.40); #Monocytes 0.5 thou/uL (0.11-0.59); #Neutrophils 2.7 thou/uL (1.40-6.50); %Basophils 0.1 % (0.0-1.0); %Eosinophils 2.8 % (0.0-10.0); %Lymphocytes 31.6 % (21.0-51.0); %Monocytes 10.4 % (0.0-10.0); %Neutrophils 55.2 % (42.0-75.0); Hemoglobin 7.7 g/dL (14.0-18.0); Mean Corpuscular Hemoglobin 30.3 pg (27.0-31.0); Mean Corpuscular Volume 91.9 fL (78.0-98.0); Mean Platelet Volume 8.6 fL (7.4-10.4); Platelet Count 227 thou/uL (130-400); RBC Distribution Width 13.2 % (11.5-14.5); Red Blood Cell (RBC) Count 2.55 mill/uL (4.70-6.10); White Blood Cell (WBC) Count 4.9 thou/uL (4.8-10.8)
[2018-10-25 07:00] LABS: Anion Gap 18 mmol/L (10-20); BUN (Urea Nitrogen) 85 mg/dL (8.4-25.7); Calc. Creatinine Clearance 10 mL/min (70-130); Calcium 9.4 mg/dL (7.8-10.44); Carbon Dioxide 20 mmol/L (23-31); Chloride 107 mmol/L (98-107); Estimated GFR-MDRD 11; Glucose 81 mg/dL (83-110); Potassium 4.8 mmol/L (3.5-5.1); Sodium 140 mmol/L (136-145)
--- NOTE | 2018-10-25 08:45 | PRG ---
DATE OF SERVICE: 10/25/2018 SUBJECTIVE: Mr. Fowler is awake and alert. He is eating and resting comfortably. OBJECTIVE: VITAL SIGNS: Blood pressure 177/72, temperature 98.1, and O2 saturation 99% on room air. GENERAL: He is alert, active, in no acute distress. LUNGS: Reveal bilateral breath sounds. HEART: Reveals a regular rate and rhythm. No murmurs, gallops, or rubs. LABORATORY DATA: Hemoglobin 7.7, hematocrit 23.4. Creatinine is 4.84. IMPRESSION: Metastatic prostate cancer causing obstructive uropathy. PLAN: I have had a discussion with the patient today. I have known the patient since he has moved here several years ago. I have recommended to consider hospice care. The patient has taken this hospice care to be discharged home. He understands that with hospice care, this would be for end of life care. He fully understands this and now is in agreement with this. He does not wishes to pursue significant interventions at this time. Job ID: [id number]
[2018-10-25] MEDS: Bicalutamide 50 MG TAB PO SCH (09:20)
[2018-10-25] MEDS: Losartan 25 MG TAB PO SCH (09:21)
[2018-10-25] MEDS: Hydrochlorothiazide 25 MG TAB PO SCH (09:22)
--- NOTE | 2018-10-25 09:30 | PRG ---
DATE OF SERVICE: 10/25/2018 SUBJECTIVE.: The patient feels fine. He has elected for no nephrostomy tubes. He is ready for hospice. He states he does not want any further intervention done. OBJECTIVE: VITAL SIGNS: Temperature 98, pulse 67, respirations 18, blood pressure 174/70, saturation 98% on room air. GENERAL: No apparent distress. Communicating and alert. Answering questions appropriately. CARDIOVASCULAR: Regular rate and rhythm. ABDOMEN: Soft, nontender, and nondistended. Positive bowel sounds. EXTREMITIES: 1+ edema bilaterally. LABORATORY EVALUATION: The full set of labs are in the [employer] [facility] system, which I have reviewed. Of note, the patient's white count is 4.9 with a hemoglobin of 7.7. Creatinine is further increased to 4.84. ASSESSMENT AND PLAN: An 88-year-old white male with progressive renal failure secondary to bilateral obstruction from advanced prostate cancer with pelvic mass. The patient has exhausted all treatments including hormone manipulation, chemotherapy without any improvement in his prostate cancer. As such, there are no definitive options available to regress his cancer. Hospice was recommended by multiple specialties including Urology. Dr. Aparicio is not available today, and I am seeing the patient on her behalf. Per our previous discussion, I do think hospice is a reasonable approach. We again discussed nephrostomy tubes as a possibility to prolong life in case he did not wish to go hospice at this time, but he states he is ready for hospice now and does not want the nephrostomy tubes. He understands that he will likely have progressive renal failure, which will likely ultimately result in ; however, this may not be the worst way to go. As such, I will go ahead and sign off as there is nothing further from a urologic standpoint that we will offer. I do agree with hospice evaluation, which apparently is coming by today. Should there be any further issues or needs, please re-consult, otherwise, we will be available if needed. Job ID: [id number]
--- NOTE | 2018-10-25 10:10 | PDOC.PALCO ---
Palliative Care Consult - Consult Details Requesting Physician: Dr Quintanilla Reason for Consult: assistance with communication prognosis/disease, family support - Pertinent HPI Recent admission to the hospital secondary to abdominal pain. Patient with renal mass compressing on ureters bilaterally resulting in hyphonephrosis/acute renal failure. Patient refusing neph cath as he would no longer be able to remain at his current assisted living residence. Patient lives at [facility] and would prefer to remain at that location rather than relocate. Patient last received medication for nausea 10/23. Denies nausea at time of visit. Patient has elected to transition to hospice. - Pertinent PMH Prostate Ca, HTN, Renal Mass. - Social History Smoking Status: Never smoker Alcohol Use: none Drug Use History: none Living Situation: [facility] resident - Medications MAR Reviewed: Yes - Allergies Allergies/Adverse Reactions: Allergies Allergy/AdvReac Type Severity Reaction Status Date / Time azithromycin Allergy Verified 10/23/18 05:02 cephalexin [From Keflex] Allergy Verified 10/23/18 05:02 clindamycin Allergy Verified 10/23/18 05:02 sulfamethoxazole Allergy Verified 10/23/18 05:02 [From Bactrim] trimethoprim [From Bactrim] Allergy Verified 10/23/18 05:02 - Subjective Slight delay in thought pattern. Pallor, chronically ill appearing. - Objective Vital Signs: Vital Signs - Most Recent Temp Pulse Resp BP Pulse Ox 98.0 F 67 18 174/70 H 98 10/25/18 08:00 10/25/18 08:00 10/25/18 08:00 10/25/18 08:00 10/25/18 08:00 Palliative Performance Scale: 50 - Physical Exam Constitutional: NAD Deviation from normal: Slight forgetfullness HEENT: moist MMs, EOMI Respiratory: unlabored breathing Musculoskeletal: edema present Deviation from normal: Dry lower extremities. Poor turgor - Problem List (1) Palliative care encounter Code(s): Z51.5 - ENCOUNTER FOR PALLIATIVE CARE Current Visit: Yes Status: Acute Assessment: Patient has opted for hospice to manage end of life. Discussed intermittant constipation and patient prefers to avoid medications and use dietary measures such as prunes. Denies any desire to discuss further interventions at this time related to his terminal diagnosis. - Plan/Recommendations Plan: *Discharge to hospice *Patient to return to [facility] in lieu of having neph tube placed [30] minutes spent on this encounter with >50% of the time in counseling and coordination of care. Thank you for this very appropriate consult.
--- NOTE | 2018-10-25 18:45 | PRG ---
DATE OF SERVICE: 10/25/2018 OBJECTIVE: VITAL SIGNS: The patient was noted with the following vital signs; afebrile, temperature 98, pulse 65, respiratory rate of 18, O2 saturations are 98%, and blood pressure 169/72. HEENT: Unremarkable. CARDIOVASCULAR: First and second sounds were heard. RESPIRATORY: Clear to auscultation. DIGESTIVE: Revealed a benign abdomen. EXTREMITIES: No peripheral edema. SKIN: No new gross rash. LYMPHATICS: No peripheral lymphadenopathy. EXTREMITIES: No peripheral edema. LABORATORY INVESTIGATION: Hemoglobin of 7.7. Creatinine gone up to 4.84, BUN of 85. IMPRESSION: 1. Worsening renal failure in the context of bilateral obstructive uropathy. 2. Anemia, likely related to kidney disease. PLAN: From discussion with the other specialties, the patient does not want much of any intervention at this point, and without the obstructive uropathy being relieved, the patient is likely to experience progressive declining in renal function as the patient does not want much of any intervention, can only do medical supportive therapy. Job ID: [id number]
[2018-10-26 05:39] LABS: #Eosinphils 0.2 thou/uL (0.0-0.7); #Lymphocytes 1.3 thou/uL (1.20-3.40); #Monocytes 0.6 thou/uL (0.11-0.59); #Neutrophils 2.9 thou/uL (1.40-6.50); %Eosinophils 3.5 % (0.0-10.0); %Lymphocytes 26.5 % (21.0-51.0); %Monocytes 11.1 % (0.0-10.0); Hemoglobin 8.1 g/dL (14.0-18.0); Mean Corpuscular HGB CONC 32.9 g/dL (32.0-36.0); Mean Corpuscular Hemoglobin 30.6 pg (27.0-31.0); Mean Platelet Volume 8.7 fL (7.4-10.4); Platelet Count 234 thou/uL (130-400); RBC Distribution Width 13.4 % (11.5-14.5); Red Blood Cell (RBC) Count 2.64 mill/uL (4.70-6.10); White Blood Cell (WBC) Count 4.9 thou/uL (4.8-10.8)
[2018-10-26 06:11] LABS: Anion Gap 18 mmol/L (10-20); BUN (Urea Nitrogen) 87 mg/dL (8.4-25.7); Calc. Creatinine Clearance 10 mL/min (70-130); Calcium 9.3 mg/dL (7.8-10.44); Carbon Dioxide 20 mmol/L (23-31); Chloride 107 mmol/L (98-107); Estimated GFR-MDRD 11; Glucose 77 mg/dL (83-110); Potassium 4.2 mmol/L (3.5-5.1); Sodium 141 mmol/L (136-145)
[2018-10-26 07:28] VITALS: BP 186/81; TEMP 97.7
--- NOTE | 2018-10-26 07:38 | PRG ---
DATE OF SERVICE: 10/26/2018 SUBJECTIVE: The patient resting comfortably, easily arousable. Events of admission, chart reviewed. OBJECTIVE: VITAL SIGNS: Stable. Afebrile, 98 146/75. patient incontinent, urine output clear. HEART: Regular rate. LUNGS: Clear. ABDOMEN: Obese, protuberant. No CVA tenderness. : As previous, right inguinal fullness consistent with metastatic disease. Diaper demonstrates clear yellow urine. Penis is partially buried due to mass effect of metastatic soft tissue burden of his inguinal canal and scrotum. EXTREMITIES: No cyanosis, clubbing, or edema. PERTINENT LABS: White count 4, hemoglobin 8.1, platelets 234. Creatinine 4.83. UA negative for microscopic hematuria. IMPRESSION AND PLAN: Mr. Fowler is an 88-year-old male with, 1. Metastatic prostate cancer, status post radical prostatectomy, bilateral pelvic lymph node dissection at an outside facility. 2. History of adjuvant radiation therapy, refractory metastatic prostate cancer. He has received chemotherapy, treatment of his metastatic disease has been exhausted with progressive disease. history of bilateral hydronephrosis, radiation cystitis, refractory. Over the last couple of weeks/ months, Dr. Quintanilla and I have discussed with patient regarding progressive cancer despite aggressive treatment. I previously discussed with the patient regarding options of bilateral percutaneous nephrostomy tubes due to impending renal failure, which he continues to decline. At this point in juncture, he has agreed to proceed with hospice evaluation discharge today to [facility] and transition to outpatient hospice. Questions encouraged at bedside. Job ID: [id number] MTDD
[2018-10-26] MEDS: Bicalutamide 50 MG TAB PO SCH (09:03)
[2018-10-26] MEDS: Hydrochlorothiazide 25 MG TAB PO SCH (09:05)
[2018-10-26] MEDS: Losartan 25 MG TAB PO SCH (09:05)
--- NOTE | 2018-10-26 11:23 | PRG ---
DATE OF SERVICE: 10/26/2018 SUBJECTIVE: Mr. Fowler is comfortable. He is doing well. He has no medical complaints. He is ready to go home. He has been accepted to hospice care. OBJECTIVE: VITAL SIGNS: BP 146/75, temperature 98.2, pulse 67, O2 sats 100%. LUNGS: Clear. HEART: Reveals regular rate and rhythm. No murmurs, gallops, or rubs. IMPRESSION: Metastatic prostate cancer with obstructive uropathy. PLAN: The patient will be discharged home to hospice. The patient still verbalizes all understanding of this and is wishing to proceed. Job ID: [id number]
--- NOTE | 2018-10-26 17:29 | DIS ---
DATE OF ADMISSION: 10/23/2018 DATE OF DISCHARGE: 10/26/2018 DISCHARGE DIAGNOSES: 1. Metastatic prostate cancer. 2. Acute renal failure secondary to obstructive uropathy. CONSULTING PHYSICIAN: Simran Aparicio DO [facility] SUMMARY: The patient is an 88-year-old male with known history of metastatic prostate cancer with a large pelvic mass. He has been undergoing therapy through the Oncology Clinic. He has developed abdominal pain, discomfort, was found to have obstructive uropathy. Bilateral nephrostomy tubes were recommended. He did not wish to proceed with that. He wished to have no further therapy. He had been reluctant to enter hospice visit with the patient. He agreed to be in hospice care. He was discharged on 10/26/2018 under hospice care. An outpatient DNR was signed by me. The patient verbalized full understanding, wished to proceed with all hospice care at this time. Job ID: [id number]
== END 2018-10-26 10:22 | disposition hospice, home (50) | DRG 683 ==
LOC: ERS 00:49 → T4-B 02:50
PROVIDERS: ADMIT Family Medicine; ATTEND Family Medicine
DX: N17.9 Acute kidney failure, unspecified (principal); C79.51 Secondary malignant neoplasm of bone; N13.8 Other obstructive and reflux uropathy; Z66 Do not resuscitate; Z51.5 Encounter for palliative care; N13.30 Unspecified hydronephrosis; G47.33 Obstructive sleep apnea (adult) (pediatric); N18.9 Chronic kidney disease, unspecified; I12.9 Hypertensive chronic kidney disease with stage 1 through stage 4 chronic kidney disease, or unspecified chronic kidney disease; D63.1 Anemia in chronic kidney disease; J44.9 Chronic obstructive pulmonary disease, unspecified; E78.00 Pure hypercholesterolemia, unspecified; Z85.46 Personal history of malignant neoplasm of prostate; Z88.1 Allergy status to other antibiotic agents; Z88.2 Allergy status to sulfonamides; Z79.899 Other long term (current) drug therapy
CPT/HCPCS: 36415; 74176; 80048; 80053; 81001; 83690; 84153; 85025; 86850; 86900; 86901; 96361; 96374; 96375; J2270; J2405